=== PATIENT | female | born 1995 | race Caucasian/White ===

== ENCOUNTER 2017-11-29 21:40 | Observation (INO) | payer OTHER ==
[2017-11-29 23:09] LABS: ABSOLUTE LYMPHOCYTES (AUTO) 0.9 10^3/uL (0.5-4.7); ABSOLUTE MONOCYTES (AUTO) 0.5 10^3/uL (0.1-1.4); ABSOLUTE NEUT (AUTO) 13.8 10^3/uL (1.7-8.2); BASOPHILS % (AUTO) 0.1 % (0-2); HEMATOCRIT 38.3 % (36.0-47.0); HEMOGLOBIN 13.1 g/dL (12.0-15.5); LYMPHOCYTES % (AUTO) 5.7 % (13-45); MEAN CORPUSCULAR HEMOGLOBIN 31.1 pg (27.0-33.4); MEAN CORPUSCULAR HGB CONC 34.1 g/dL (32.0-36.0); MEAN CORPUSCULAR VOLUME 91 fl (80-97); PLATELET COUNT 234 10^3/uL (150-450); RED BLOOD COUNT 4.19 10^6/uL (3.72-5.28); RED CELL DISTRIBUTION WIDTH 13.5 % (11.5-14.0); SEGMENTED NEUTROPHILS % (AUTO) 91.2 % (42-78); TOTAL CELLS COUNTED % (AUTO) 100 %; WHITE BLOOD COUNT 15.2 10^3/uL (4.0-10.5)
[2017-11-29 23:13] LABS: ALANINE AMINOTRANSFERASE 26 U/L (9-52); ALBUMIN 4.3 g/dL (3.5-5.0); ALKALINE PHOSPHATASE 76 U/L (38-126); ANION GAP 14 (5-19); ASPARTATE AMINO TRANSFERASE 27 U/L (14-36); BILIRUBIN,DIRECT 0.3 mg/dL (0.0-0.4); BILIRUBIN,TOTAL 1.9 mg/dL (0.2-1.3); BLOOD UREA NITROGEN 7 mg/dL (7-20); CALCIUM 9.3 mg/dL (8.4-10.2); CARBON DIOXIDE 20 mmol/L (22-30); CHLORIDE 105 mmol/L (98-107); GLUCOSE 121 mg/dL (75-110); LIPASE 17.7 U/L (23-300); POTASSIUM 3.8 mmol/L (3.6-5.0); SODIUM 139.3 mmol/L (137-145); TOTAL PROTEIN 7.4 g/dL (6.3-8.2)
[2017-11-29] MEDS ORDERED: FENTANYL CITRATE INJ/PF 100 MCG/2 ML AMPUL IV ONE (23:36)
[2017-11-29] MEDS ORDERED: ONDANSETRON HCL INJ/PF 4 MG/2 ML SDV IV ONE (23:36)
--- NOTE | 2017-11-29 23:36 | ER Document Report ---
ED GI/ - General Mode of Arrival: Ambulatory Information source: Patient <TONY LYNNE - Last Filed: 11/30/17 01:31> <PATRICK STEELE - Last Filed: 11/30/17 03:24> - General Chief Complaint: Abdominal Pain Stated Complaint: ABDOMINAL PAIN Time Seen by Provider: 11/29/17 22:46 Notes: Patient is a 22-year-old female that presents to the emergency department today with complaints of abdominal pain. Patient states she has had associated diarrhea and nausea without vomiting. Patient states she has had similar symptoms to this once in the past and was told she had an appendicolith but never had an appendectomy performed. Patient denies any sick contacts, or history of ovarian cyst. (TONY LYNNE) - Related Data Allergies/Adverse Reactions: No Known Allergies Allergy (Verified 11/29/17 23:32) Past Medical History - General Information source: Patient - Social History Smoking Status: Never Smoker Cigarette use (# per day): No Chew tobacco use (# tins/day): No Frequency of alcohol use: Social Drug Abuse: None Lives with: Family Family History: Reviewed & Not Pertinent Patient has suicidal ideation: No Patient has homicidal ideation: No Renal/ Medical History: Denies: Hx Peritoneal Dialysis <GUERAMARY HERNANDEZON - Last Filed: 11/30/17 01:31> Review of Systems - Review of Systems Constitutional: No symptoms reported EENT: No symptoms reported Cardiovascular: No symptoms reported Respiratory: No symptoms reported Gastrointestinal: See HPI, Abdominal pain, Diarrhea, Nausea. denies: Vomiting Genitourinary: No symptoms reported Female Genitourinary: No symptoms reported Musculoskeletal: No symptoms reported Skin: No symptoms reported Hematologic/Lymphatic: No symptoms reported Neurological/Psychological: No symptoms reported -: Yes All other systems reviewed and negative <TONY LYNNE - Last Filed: 11/30/17 01:31> Physical Exam - Vital signs Interpretation: Tachycardic, Febrile - General General appearance: Alert In distress: None - Appears uncomfortable - HEENT Head: Normocephalic, Atraumatic Eyes: Normal Pupils: PERRL - Respiratory Respiratory status: No respiratory distress Chest status: Nontender Breath sounds: Normal Chest palpation: Normal - Cardiovascular Rhythm: Regular Heart sounds: Normal auscultation Murmur: No - Abdominal Inspection: Normal Distension: No distension Bowel sounds: Normal Tenderness: Tender - Right greater than left lower quadrant pain. No: Rebound Organomegaly: No organomegaly - Back Back: Normal, Nontender - Extremities General upper extremity: Normal inspection, Nontender, Normal color, Normal ROM , Normal temperature General lower extremity: Normal inspection, Nontender, Normal color, Normal ROM , Normal temperature, Normal weight bearing. No: Mirian's sign - Neurological Neuro grossly intact: Yes Cognition: Normal Orientation: AAOx4 [place] Coma Scale Eye Opening: Spontaneous [place] Coma Scale Verbal: Oriented [place] Coma Scale Motor: Obeys Commands [place] Coma Scale Total: 15 Speech: Normal Motor strength normal: LUE, RUE, LLE, RLE Sensory: Normal - Psychological Associated symptoms: Normal affect, Normal mood - Skin Skin Temperature: Warm Skin Moisture: Dry Skin Color: Normal <PATRICK STEELE - Last Filed: 11/30/17 03:24> - Vital signs Vitals: Temp Pulse Resp BP Pulse Ox 100.9 F H 135 H 20 114/76 99 11/29/17 21:59 11/29/17 21:59 11/29/17 21:59 11/29/17 21:59 11/29/17 21:59 Course - Laboratory Result Diagrams: 11/29/17 22:35 11/29/17 22:35 <TONY LYNNE - Last Filed: 11/30/17 01:31> - Laboratory Result Diagrams: 11/29/17 22:35 11/29/17 22:35 - Diagnostic Test Radiology reviewed: Reports reviewed <PATRICK STEELE - Last Filed: 11/30/17 03:24> - Re-evaluation Re-evalutation: 11/30/17 03:00 Patient is a 22-year-old female who comes in complaining of right greater than left abdominal pain that began last night with associated nausea. Patient is also febrile and tachycardic. She responded well to pain medications and fluids. CT is consistent with distal appendicitis. Patient was discussed with Dr. Lamb and will be admitted to the surgical service. Zosyn has been ordered. Fluids have been initiated and patient is n.p.o. Stable at the time of admission. Patient agrees with this plan. (PATRICK STEELE) - Vital Signs Vital signs: Temp Pulse Resp BP Pulse Ox 97.8 F 135 H 17 100/66 98 11/30/17 01:06 11/29/17 21:59 11/30/17 03:05 11/30/17 02:01 11/30/17 03:05 - Laboratory Laboratory results interpreted by me: 11/29/17 11/29/17 11/30/17 22:35 22:35 01:18 WBC 15.2 H Seg Neutrophils % 91.2 H Lymphocytes % 5.7 L Absolute Neutrophils 13.8 H Carbon Dioxide 20 L Glucose 121 H Total Bilirubin 1.9 H Lipase 17.7 L Urine Ketones 20 H Urine Blood SMALL H Discharge <TONY LYNNE - Last Filed: 11/30/17 01:31> - Discharge Admitting Provider: Surgicalist - [facility] Unit Admitted: Surgical Floor <PATRICK STEELE - Last Filed: 11/30/17 03:24> - Discharge Clinical Impression: Appendicitis Qualifiers: Appendicitis type: acute appendicitis Acute appendicitis type: unspecified acute appendicitis type Qualified Code(s): K35.80 - Unspecified acute appendicitis Condition: Stable Disposition: ADMITTED INPATIENT Scribe Attestation: 11/30/17 03:24 I personally performed the services described in the documentation, reviewed and edited the documentation which was dictated to the scribe in my presence, and it accurately records my words and actions. (PATRICK STEELE) Scribe Documentation - Scribe Written by Rafaelibanurag:: Rohit Knowles, 11/30/2017 0137 acting as scribe for :: Maicol <TONY LYNNE - Last Filed: 11/30/17 01:31>
[2017-11-29] MEDS ORDERED: NORMAL SALINE 1000 ML 1,000 ML IV ONE (23:54)
[2017-11-30] MEDS ORDERED: FENTANYL CITRATE INJ/PF 100 MCG/2 ML AMPUL IV ONE (00:52)
[2017-11-30] MEDS ORDERED: METOCLOPRAMIDE HCL INJ/PF 10 MG/2 ML SDV IV ONE (00:52)
[2017-11-30] MEDS ORDERED: MORPHINE SULFATE 10 MG/ML INJ IV ONE (01:13)
[2017-11-30 02:39] LABS: APPEARANCE,URINE CLEAR; BILIRUBIN,URINE NEGATIVE (NEGATIVE); COLOR,URINE YELLOW; GLUCOSE, URINE NEGATIVE (NEGATIVE); KETONES,URINE 20 mg/dL (NEGATIVE); LEUKOCYTE ESTERASE,URINE NEGATIVE (NEGATIVE); NITRITE,URINE NEGATIVE (NEGATIVE); PROTEIN,URINE NEGATIVE (NEGATIVE); URINE SPECIFIC GRAVITY 1.008; UROBILINOGEN,URINE NEGATIVE mg/dL (<2.0)
--- NOTE | 2017-11-30 02:44 | RADIOLOGY REPORT (SQ) ---
CT abdomen and pelvis with contrast on 11/30/2017 at 2:09 AM CLINICAL INDICATION: Right lower quadrant pain, nausea and vomiting TECHNIQUE: Multiple axial images are obtained throughout the abdomen and pelvis following the administration of IV and oral contrast. This exam was performed according to our departmental dose-optimization program, which includes automated exposure control, adjustment of the mA and/or kV according to patient size and/or use of iterative reconstruction technique. Total DLP is 790.05 mGy*cm. COMPARISON: None FINDINGS: Abdomen: The lung bases are clear. The solid abdominal organs are unremarkable. There is no abdominal adenopathy. There is no free fluid or free air within the abdomen. The abdominal portion of the GI tract is unremarkable. Pelvis: Pelvic organs appear unremarkable by CT. There is no free fluid in the pelvis. There is no pelvic adenopathy. The appendix is seen on coronal images 31 through 39. There is some air in the appendix and the appendix is not significantly dilated. Oral contrast is noted throughout the colon all the way to the rectum but there is no oral contrast in the appendix. There is no periappendiceal fat stranding however. The distal appendix however is fluid-filled with some apparent abnormal wall enhancement seen best on coronal image 39 and this portion of the appendix measures up to 7 mm in diameter. The appearance is suggestive of early acute distal tip appendicitis. There is no evidence of abscess or perforation. Pelvic portion of the GI tract is otherwise unremarkable. No acute bony abnormality is noted. IMPRESSION: Findings as above worrisome for early acute distal tip appendicitis. There is no evidence of abscess or perforation.
[2017-11-30] MEDS ORDERED: PIPERACILLIN/TAZOBACTAM 3.375 GM VIAL IV ONE (02:45)
[2017-11-30] MEDS ORDERED: RINGERS SOLUTION,LACTATED 1,000 ML IV ONE (03:01)
--- NOTE | 2017-11-30 03:25 | PDOC H&P ---
History of Present Illness Admission Date/PCP: 11/30/17 02:55 Patient complains of: abdominal pains History of Present Illness: ROGER MAN is a 22 year old female who c/o lower abdominal pains at around 11:30 pm 11/28/17. This was asso with nausea and diarrhea. Pains originally thought to be menstrual cramps but got worse last night and went to ED. A CT scan showed an acute appendicitis. Patient claims she had a milder pains about 5 years ago and told she has an appendicalith on a CT scan and will likely have an acute appendicitis. Past Surgical History Past Surgical History: Reports: Other - cyst removed on her foot at 5 yo Social History Lives with: Family Smoking Status: Never Smoker Family History Family History: Reviewed & Not Pertinent Parental Family History Reviewed: Yes - both parents are healthy Children Family History Reviewed: No Sibling(s) Family History Reviewed.: No Medication/Allergy Allergies/Adverse Reactions: No Known Allergies Allergy (Verified 11/29/17 23:32) Review of Systems Constitutional: PRESENT: chills, fever(s), headache(s) Eyes: PRESENT: other - no visual/hearing changes Cardiovascular: PRESENT: other - no cough/chest pains Gastrointestinal: PRESENT: abdominal pain, diarrhea, nausea Genitourinary: PRESENT: other - no dysuria Endocrine: PRESENT: other - last day of menses Hematologic/Lymphatic: PRESENT: other - no easy bruising Physical Exam Vital Signs: Temp Pulse Resp BP Pulse Ox 97.8 F 135 H 17 100/66 98 11/30/17 01:06 11/29/17 21:59 11/30/17 03:05 11/30/17 02:01 11/30/17 03:05 General appearance: PRESENT: mild distress Head exam: PRESENT: atraumatic Eye exam: PRESENT: conjunctiva pink Mouth exam: PRESENT: moist Neck exam: PRESENT: full ROM Respiratory exam: PRESENT: clear to auscultation jerry Cardiovascular exam: PRESENT: RRR Pulses: PRESENT: normal radial pulses Vascular exam: PRESENT: normal capillary refill GI/Abdominal exam: PRESENT: rebound, soft, tenderness - Both LQ primarily RLQ Rectal exam: PRESENT: deferred Extremities exam: PRESENT: full ROM Musculoskeletal exam: PRESENT: ambulatory Neurological exam: PRESENT: alert, oriented to person, oriented to place, oriented to time, oriented to situation Psychiatric exam: PRESENT: appropriate affect Skin exam: PRESENT: normal color, warm Results Impressions: Abdomen/Pelvis CT 11/30/17 00:00 IMPRESSION: Findings as above worrisome for early acute distal tip appendicitis. There is no evidence of abscess or perforation. Assessment & Plan - Time Time Spent: 30 to 50 Minutes - Inpatient Certification Medical Necessity: Need For IV Fluids, Need for Pain Control, Need for IV Antibiotics, Need for Surgery - Plan Summary Plan Summary: NPO IV Fluids IV antibiotics For lap Appendectomy this am
[2017-11-30] MEDS ORDERED: RINGERS SOLUTION,LACTATED 1,000 ML IV PRN (04:03)
[2017-11-30] MEDS: MORPHINE SULFATE 10 MG/ML INJ IV PRN ×2 (04:11→12:46)
[2017-11-30] MEDS ORDERED: HYDROMORPHONE HCL INJ/PF 2 MG/ML AMPULE IV ONE (07:15)
[2017-11-30] MEDS ORDERED: ONDANSETRON HCL INJ/PF 4 MG/2 ML SDV ONE (07:34)
[2017-11-30] MEDS ORDERED: ACETAMINOPHEN 1,000 MG/100 ML RTUPB IV ONE (07:34)
[2017-11-30] MEDS ORDERED: DEXAMETHASONE SOD PHOSPHATE INJ 4 MG/1 ML VIAL ONE (07:34)
[2017-11-30] MEDS ORDERED: PROPOFOL INJ 200 MG/20 ML VIAL IV ONE (07:34)
[2017-11-30] MEDS ORDERED: LIDOCAINE 2% INJ-PF (20 MG/ML) 10 ML AMPUL ONE (07:34)
[2017-11-30] MEDS ORDERED: MIDAZOLAM 2 MG/2 ML INJ ONE (07:34)
[2017-11-30] MEDS ORDERED: FENTANYL CITRATE INJ/PF 100 MCG/2 ML AMPUL ONE ×2 (07:34→09:51)
[2017-11-30] MEDS: BUPIVACAINE HCL 0.25 % INJ/PF (2.5 MG/1 ML) 30 ML VIAL ONE ×2 (08:11→08:17)
[2017-11-30] MEDS ORDERED: OXYCODONE-ACETAMINOPHEN 5-325 MG TABLET PO PRN ×3 (08:24→10:25)
[2017-11-30] MEDS ORDERED: MORPHINE SULFATE 10 MG/ML INJ IV PRN (08:24)
[2017-11-30] MEDS ORDERED: FENTANYL CITRATE INJ/PF 100 MCG/2 ML AMPUL IV PRN ×3 (08:24)
[2017-11-30] MEDS ORDERED: DIPHENHYDRAMINE HCL 50 MG/ML VIAL IV PRN (08:24)
[2017-11-30] MEDS ORDERED: MEPERIDINE HCL/PF INJ 25 MG/1 ML DISP.SYRIN IV PRN (08:24)
[2017-11-30] MEDS ORDERED: PROMETHAZINE HCL INJ 25 MG/1 ML VIAL IV PRN ×2 (08:24)
[2017-11-30] MEDS ORDERED: ONDANSETRON HCL INJ/PF 4 MG/2 ML SDV IV PRN ×2 (08:24→10:25)
--- NOTE | 2017-11-30 09:18 | Operative Report ---
Nonrecallable Operative Report DATE OF SURGERY: 11/30/17 PREOPERATIVE DIAGNOSIS: Bilateral Adnexal pain, Possible Early Appendicitis POSTOPERATIVE DIAGNOSIS: PID, Endometriosis OPERATION: See Op report per Dr. Lamb SURGEON: ZULEIKA KENT ANESTHESIA: GA TISSUE REMOVED OR ALTERED: per Dr. Lamb Op report COMPLICATIONS: None ESTIMATED BLOOD LOSS: per Dr. Lamb Op report INTRAOPERATIVE FINDINGS: endometriosis implants and scaring noted above bladder , Increase in pelvic fluid with possible purulent appearance. Somewhat dilated fallopian tube on the left, left ovary normal, right fallopian tube caliber normal, right simple appearing cyst. PROCEDURE: Called to evaluate patient while already under anesthesia for Appendectomy. Dr. Lamb had already removed the appendix. Exam findings as above. Would recommend GC/CT - okay to perform on a dirty catch urine specimen. Would recommend treatment for suspected PID. Rocephin 500mg IM or IV times one dose then begin Cefoxitin 2grams IV Q 12 hours Metronidazole 500mg po/IV BID Doxycycline 100mg po/IV BID Will follow patient while admitted on the floor. Also then when discharged would recommend: Metronidazole 500mg po BID for 14 days Doxycycline 100mg po BID for 14 days Follow up in the office for continued management of PID and Endometriosis.
[2017-11-30] MEDS ORDERED: FENTANYL CITRATE INJ/PF 100 MCG/2 ML AMPUL INJ ONE (09:45)
[2017-11-30] MEDS ORDERED: MORPHINE SULFATE 10 MG/ML INJ ONE (09:49)
[2017-11-30] MEDS ORDERED: MORPHINE SULFATE 10 MG/ML INJ INJ ONE ×2 (09:58→10:03)
--- NOTE | 2017-11-30 10:45 | OPERATIVE REPORT E ---
Operative Report NAME: ROGER MAN : 1995 AGE: 22Y DATE OF SURGERY: 11/30/2017 ROOM: 527 PREOPERATIVE DIAGNOSIS: Acute appendicitis. POSTOPERATIVE DIAGNOSIS: Pelvic inflammatory disease and endometriosis. OPERATION: Laparoscopic appendectomy, exploration and irrigation of abdominal cavity with 5 liters of saline. SURGEON: LETICIA GRIFFITH M.D. ANESTHESIA: General. INDICATION: This is a 22-year-old female who came with both lower quadrant abdominal pain to that area and nausea for the past 2 days. She went to the ED last night where a CAT scan of the abdomen revealed an early acute appendicitis. She was tender in both lower quadrants. She was then taken to the OR. DESCRIPTION OF PROCEDURE: After adequate general anesthesia, the patient was placed in the supine position and the abdomen prepped and draped in the usual sterile fashion. Appropriate timeout was then called. Next, an infraumbilical incision was made and fascia grasped on each side by Hiram clamps and divided between the Hiram clamps. The fascia was then entered dilated with a Sangeetha clamp through the abdominal cavity. A Shreyas trocar was then inserted and CO2 insufflated to a pressure of 15 mmHg. Attention directed to the appendix and the appendix noted right at the base close to the cecum. This appeared to be normal. A window developed at the base of the appendix. Endo ANTONIETA was then done to divide the base of the appendix. The rest of the mesoappendix was then divided and cauterized using Harmonic liane. Appendix noted to be quite normal. It was then placed in an EndoBag and pulled out through the umbilical port. Trocars were put back. The appendix was palpated through the bag and noted to be soft and not inflamed. Therefore, attention then directed towards the pelvis and there was some exudate noted at the right pelvis and some light purulent fluid. The fluid was then aspirated about 5 mL. This was sent for culture. At this point, Dr. Rodriguez, the OB[employer]IOR [employer]ENEFITS SPECIALIST relationship mgr was called and she came in and did an intraoperative consultation. The patient further examined with the laparoscope at the pelvis and the right fallopian tube noted to be dilated and also more of exudate around the fallopian tube noted. The right ovary has a small cyst. On further exploration, there appears to be an endometriosis right on the top of the bladder and another one just to the left. Patient, from her history, apparently has some crampy pains with her period which most likely explained her cramping from the endometriosis. At this point, Dr. Rodriguez suggested putting the patient on Rocephin and Flagyl and eventually on doxycycline on discharge. She also checked for chlamydia and suggested irrigating the pelvis and abdominal cavity as much as possible. The pelvis was then irrigated and the rest of the abdominal cavity with at least 5 L of saline until all the return flow was clear. The appendiceal stump was inspected and this noted to be clean and without any bleeding. At this point, the procedure was then terminated. All the trocars were removed and liane allowed to come out of the trocar sites. The infraumbilical fascial defect was then closed with [id number] suture using 0 Vicryl. All the skin incisions were then closed with 4-0 Vicryl undyed. Marcaine was injected about the incisions and primarily along the infraumbilical fascia. Sterile dressings applied over the operative sites. Needle, instrument and sponge count were all correct. Estimated blood loss about 10 mL. The patient tolerated the procedure well, brought to the recovery room in satisfactory condition. DICTATING PHYSICIAN: LETICIA GRIFFITH M.D. [id number] PHY#: [id number] ID: [id number] JOB#: [id number] ACCT: [id number] cc:LETICIA GRIFFITH M.D. > MTDD
[2017-11-30] MEDS ORDERED: SUCCINYLCHOLINE CHLORIDE INJ 200 MG/10 ML VIAL ONE (11:53)
[2017-11-30] MEDS ORDERED: GLYCOPYRROLATE 1 MG/5 ML SYRINGE ONE (11:53)
[2017-11-30] MEDS ORDERED: VECURONIUM BROMIDE INJ 10 MG VIAL IV ONE (11:53)
[2017-11-30] MEDS ORDERED: KETOROLAC TROMETHAMINE 60 MG/2 ML SDV ONE (11:53)
[2017-11-30] MEDS ORDERED: NEOSTIGMINE METHYLSULFATE 10 MG/10 ML VIAL ONE (11:53)
[2017-11-30] MEDS ORDERED: CEFTRIAXONE SODIUM 500 MG in NORMAL SALINE 25 ML IV ONE (12:00)
[2017-11-30] MEDS ORDERED: METRONIDAZOLE 500 MG/NS RTU 500 MG/100 ML RTUPB IV SCH (14:00)
[2017-11-30 15:35] LABS: CHLAM PCR NOT DETECTED (NOT DETECT); GON PCR DETECTED (NOT DETECT)
[2017-11-30] MEDS ORDERED: AZITHROMYCIN 1 GM SUSP PACKET PO ONE (16:30)
[2017-11-30 16:45] VITALS: BP 108/71
[2017-11-30] MEDS ORDERED: CEFOXITIN 1 GM/D5W RTU 1 GM/50 ML RTUPB IV SCH (22:00)
--- NOTE | 2017-12-01 13:41 | DISCHARGE SUMMARY E ---
Discharge Summary NAME: ROGER MAN : 1995 AGE: 22Y ADMITTED: 11/30/2017 DISCHARGED: 11/30/2017 PROCEDURE DONE: 1. Laparoscopic appendectomy. 2. Culture of pelvic fluid with pelvic lavage using 5 liters of saline for pelvic inflammatory disease and endometriosis. HOSPITAL COURSE: This is a 22-year-old female complaining of abdominal pains, primarily in both lower quadrants for 2 days. There is associated nausea and diarrhea. White count is slightly elevated. She had a CAT scan which showed compatible with early acute appendicitis. Patient then underwent laparoscopic appendectomy on 11/30/2017. Intraoperatively, appendix appeared to be normal but evidence of PID and endometriosis. Dr. Huffman, the [employer] was called as an operative consultation and noted PID with benign cysts on the right ovary with endometriosis at the peritoneal area on the bladder side. Postoperatively, patient had chlamydia test and Dr. Moya also saw the patient on the floor and suggested giving patient IV Rocephin and ceftriaxone. The patient then discharged quite improved on p.o. doxycycline, Flagyl, and other medications described by Dr. Moya. Patient to be followed up in the [facility] clinic, care of Dr. Moya. Patient can be followed in the surgical clinic in 2 weeks. Patient then discharged quite improved on 11/30/2017 with a final diagnosis of pelvic inflammatory disease with endometriosis. DICTATING PHYSICIAN: LETICIA GRIFFITH M.D. [id number] PHY#: [id number] ID: [id number] JOB#: [id number] ACCT: [id number] cc:Madhu LAWSON MD, M.D. [facility],
== END 2017-11-30 17:26 | disposition home or self-care (01) ==
LOC: ER 21:40 → INTOOBSV 11-30 02:55 → EH 11-30 02:55 → 5 11-30 04:30
PROVIDERS: ATTEND Student in an Organized Health Care Education/Training Program
PROC: 0W9G3ZX Drainage of Peritoneal Cavity, Percutaneous Approach, Diagnostic (ICD-10-PCS; 2017-11-30)
PROC: 0DTJ4ZZ Resection of Appendix, Percutaneous Endoscopic Approach (ICD-10-PCS; principal; 2017-11-30 08:00)
DX: K35.80 Unspecified acute appendicitis (principal); N73.9 Female pelvic inflammatory disease, unspecified; N80.3 Endometriosis of pelvic peritoneum; N83.291 Other ovarian cyst, right side; R51 Headache; R00.0 Tachycardia, unspecified
CPT/HCPCS: 44970; 49083 ×2; 96376; 99285; 96361; 96374; 96375; 36415; 87205; 87070; 83690; 84703; 85025; 81025; 87075; 80053; 81001; 87491; 87591; 88304 ×2; 74177; G0378 ×2; J2250; J1100; J1885; J3010; J3490 ×3; Q0144; J2765; J2270; J0696; J0330; J2405; J7030; J7120; J7050; J2704; J2543; J0131; 840

== ENCOUNTER 2019-12-30 18:20 | Emergency (ER) | payer OTHER ==
[2019-12-30 18:27] VITALS: BP 138/80
[2019-12-30 19:28] LABS: APPEARANCE,URINE CLEAR; BILIRUBIN,URINE NEGATIVE (NEGATIVE); COLOR,URINE YELLOW; GLUCOSE, URINE NEGATIVE (NEGATIVE); KETONES,URINE NEGATIVE (NEGATIVE); LEUKOCYTE ESTERASE,URINE NEGATIVE (NEGATIVE); NITRITE,URINE NEGATIVE (NEGATIVE); PROTEIN,URINE NEGATIVE (NEGATIVE); URINE SPECIFIC GRAVITY 1.008; UROBILINOGEN,URINE NEGATIVE mg/dL (<2.0)
--- NOTE | 2019-12-30 19:37 | ER Document Report ---
ED Medical Screen (RME) - General Chief Complaint: Abdominal Pain Stated Complaint: ABDOMINAL PAIN Time Seen by Provider: 12/30/19 19:24 Mode of Arrival: Ambulatory Information source: Patient Notes: Patient is a 24 y/o female who is 11 weeks and presents with diffuse abdominal pain that began this afternoon. Reports that while she was at the store her abdominal pain worsened and she had diarrhea. She reports while she had diarrhea she became diaphoretic and lightheaded. She then went home and proceeded to have more diarrhea which was now bloody. Patient reports nausea, but denies fever, vomiting, vaginal bleeding, and urinary symptoms. Abdomen: Abdomen is soft active bowel sounds in all 4 quadrants. Diffuse tenderness is noted. I have greeted and performed a rapid initial assessment of this patient. A comprehensive ED assessment and evaluation of the patient, analysis of test results and completion of medical decision making process will be conducted by an additional ED providers. TRAVEL OUTSIDE OF THE [place] IN LAST 30 DAYS: No - Related Data Allergies/Adverse Reactions: No Known Allergies Allergy (Verified 11/29/17 23:32) Past Medical History Renal/ Medical History: Denies: Hx Peritoneal Dialysis Past Surgical History: Reports: Other - cyst removed on her foot at 5 yo Physical Exam - Vital signs Vitals: Temp Pulse Resp BP Pulse Ox 98.2 F 90 16 138/80 H 98 12/30/19 18:27 12/30/19 18:27 12/30/19 18:27 12/30/19 18:27 12/30/19 18:27 Course - Vital Signs Vital signs: Temp Pulse Resp BP Pulse Ox 98.2 F 90 16 138/80 H 98 12/30/19 18:27 12/30/19 18:27 12/30/19 18:27 12/30/19 18:27 12/30/19 18:27
--- NOTE | 2019-12-30 20:28 | RADIOLOGY REPORT (SQ) ---
EXAM DESCRIPTION: US LESS THAN 14 WEEKS COMPLETED DATE/TME: 12/30/2019 19:30 CLINICAL HISTORY: 24 years Female abdominal pain, 11 wks COMPARISON: None. TECHNIQUE: Transabdominal duplex imaging performed to evaluate the pelvis. FINDINGS: Uterus measures 13 x 6.9 cm. Cervix is closed and measures 3.2 cm. No evidence of abruption or previa. Right ovary is normal in size with simple appearing cyst measuring 2.2 cm. Normal blood flow. Small amount of free fluid. [place]-rump length 5.6 cm. Heart rate 178 bpm. Left ovary is also normal in size with normal blood flow. IMPRESSION: Living IUP corresponding to 12 weeks two days Small amount of free fluid
[2019-12-30 20:43] LABS: ABSOLUTE EOSINOPHILS # (AUTO) 0.4 10^3/uL (0.0-0.6); ABSOLUTE LYMPHOCYTES (AUTO) 2.2 10^3/uL (0.5-4.7); ABSOLUTE MONOCYTES (AUTO) 0.7 10^3/uL (0.1-1.4); ABSOLUTE NEUT (AUTO) 7.1 10^3/uL (1.7-8.2); BASOPHILS % (AUTO) 0.3 % (0-2); EOSINOPHILS % (AUTO) 3.5 % (0-6); HEMATOCRIT 36.7 % (36.0-47.0); HEMOGLOBIN 13.1 g/dL (12.0-15.5); LYMPHOCYTES % (AUTO) 20.8 % (13-45); MEAN CORPUSCULAR HEMOGLOBIN 32.2 pg (27.0-33.4); MEAN CORPUSCULAR HGB CONC 35.6 g/dL (32.0-36.0); MEAN CORPUSCULAR VOLUME 91 fl (80-97); MONOCYTES % (AUTO) 6.4 % (3-13); PLATELET COUNT 253 10^3/uL (150-450); RED BLOOD COUNT 4.05 10^6/uL (3.72-5.28); RED CELL DISTRIBUTION WIDTH 12.4 % (11.5-14.0); TOTAL CELLS COUNTED % (AUTO) 100 %; WHITE BLOOD COUNT 10.3 10^3/uL (4.0-10.5)
[2019-12-30 21:02] LABS: ALBUMIN 4.2 g/dL (3.5-5.0); ALKALINE PHOSPHATASE 68 U/L (38-126); ANION GAP 10 (5-19); ASPARTATE AMINO TRANSFERASE 25 U/L (14-36); BILIRUBIN,DIRECT 0.3 mg/dL (0.0-0.4); BILIRUBIN,TOTAL 0.5 mg/dL (0.2-1.3); BLOOD UREA NITROGEN 10 mg/dL (7-20); CALCIUM 9.4 mg/dL (8.4-10.2); CARBON DIOXIDE 24 mmol/L (22-30); CHLORIDE 103 mmol/L (98-107); GLUCOSE 86 mg/dL (75-110); POTASSIUM 3.9 mmol/L (3.6-5.0); TOTAL PROTEIN 7.3 g/dL (6.3-8.2)
== END 2019-12-30 23:40 | disposition left against medical advice (07) ==
LOC: ER 18:20
DX: Z53.20 Procedure and treatment not carried out because of patient's decision for unspecified reasons (principal); R10.9 Unspecified abdominal pain
CPT/HCPCS: 36415; 76801; 80053; 81001; 83690; 85025; 99281